=== PATIENT | male | born 1970 | race African-American/Black ===

== ENCOUNTER 2016-08-03 08:59 | Day surgery (SDC) | payer OTHER ==
--- NOTE | 2016-08-02 12:58 | HP ---
DATE OF CLINIC: 07/25/2016 BARNEY PARNELL : 1970 PLANNED PROCEDURE: Left Shoulder Arthroscopic vs. Open Rotator Cuff Repair DATE OF SURGERY: August 03, 2016 SURGEON: Benson Acosta M.D. HISTORY OF PRESENT ILLNESS Barney Parnell is a 46 year old male. * Medication list reviewed with patient allergy list reviewed with patient. * [facility] T[facility] In[facility] 02/29/16 This is a 46-year-old gentleman who we have seen for bilateral shoulder problems currently being seen for his left shoulder which he felt was caused or exacerbated at work. There is a Workman's Comp claim going on. He has been seen physical therapy to work on his range of motion. He states that he still has 6/10 pain. He uses it for everything that he can, but he really still struggles with any overhead motions. He has had an injection which gave him some symptomatic relief but has largely worked at this point and did not result in any significant improvement in his strength. He has a hard time lifting the arm overhead and localizes most of his pain to the posterior lateral shoulder. After discussion and review of treatment options, both operative and non-operative, he has elected to proceed with surgery and presents today preoperatively. PAST MEDICAL AND SURGICAL HISTORY: Past medical and surgical history are unchanged from his previous visit. CURRENT MEDICATION * Cyclobenzaprine HCl 10 MG Tablet 1 once a day 0 days, 0 refills * Fish Oil 500 MG Capsule 1 twice a day 0 days, 0 refills * Ibuprofen 200 MG Tablet as needed 0 days, 0 refills PAST MEDICAL/SURGICAL HISTORY Reported: Shoulder Arthroscopy Right shoulder arthroscopy, rotator cuff repair, subacromial decompression with partial acromioplasty and subpectoral biceps tenodesis 02/24/[address] Benson Acosta at [facility]. Surgical / Procedural: Prior surgery Anal Fissure 1989. Medications: Taking medication for joint pain naproxen BID. SOCIAL HISTORY Behavioral: Caffeine use and non-smoker quit smoking in December 2003. Prior to that he had been a 1 pack/day smoker. Smoking status: Former smoker. Alcohol: Alcohol use - 6 drinks a week. Work: Occupation [email or web address] He lives with his and 3 children. ALLERGIES * Cats FAMILY HISTORY 3 children living REVIEW OF SYSTEMS No recent constitutional symptoms to include fevers and chills. No cardiovascular symptoms to include chest pain or palpitations. No respiratory symptoms to include shortness of breath or recent infections. PHYSICAL FINDINGS * Vitals taken 07/25/2016 09:27 am BP-Sitting R 128/88 mmHg BP Cuff Size Regular Pulse Rate-Sitting 96 bpm Temp-Oral 98.3 F Height 72 in Weight 231 lbs Body Mass Index 31.3 kg/m2 Body Surface Area 2.26 m2 Pain Level 4 Ears, Nose, Throat: * ENT: normal. Lungs: * Clear to auscultation. Cardiovascular: Heart Rate and Rhythm: * Normal. Abdomen: * Normal. Neurological: Motor: * Dominant Hand = Right Hand. Exam of his shoulder shows no significant erythema, ecchymosis or swelling. Range of motion is limited in both abduction and forward flexion to about 160 or so degrees. He externally rotates 45 degrees at the side and almost 90 degrees in the ABER position. He has good strength. He has impingement signs. His biceps signs are negative. IMAGING: He has an MRI that I have not seen any images on, but we have got the report from [facility] confirming a full thickness rotator cuff tear with retraction in the mid-level of the humeral head including the supraspinatus and infraspinatus and some superior fibers and subscapularis as well as an interstitial and infraspinatus tendon with fluid tracking into the infraspinatus muscle. The remainder of the shoulder appears within normal limits. There is no evidence of labral pathology. ASSESSMENT A 46-year-old gentleman with a full thickness left shoulder rotator cuff tear. THERAPY * Patient not eligible for fall risk assessment. PLAN * Complete rotatr-cuff tear/ruptr of left shoulder, not trauma Percocet 5-325 MG TABS, 1or 2 tablets every 4 to 6 hours as needed, 6 days, 0 refills * Rotator cuff repair open vs. arthroscopic -left CARE TEAM Rachel Miles MD Family Practice Guido Gilliam MD Physical Medicine & Rehabilitation SURGICAL CONSENT We have discussed surgical options including left shoulder arthroscopic vs. open rotator cuff repair and non-operative management. The patient was counseled in detail regarding the diagnosis, treatment options available, prognosis of each treatment option and the potential risks and complications. The risks of surgery include, but are not limited to, anesthetic , neurovascular complications, pulmonary embolism, deep vein thrombosis, wound dehiscence, failure of any or all of the discussed procedures, infection of the joint or surrounding soft tissue, need for revision surgery, chronic pain, limitations in activities of daily living, inability to return to work, and loss of normal range of motion or functional use of the extremity. There is the possibility of failure over time that may require additional operative or non-operative treatment. The patient acknowledged that there are a number of perioperative risks not mentioned here and would still like to proceed. The patient is aware of and understands these risks, and wishes to proceed with the proposed surgical procedure and other procedures as indicated at the time of surgery. We will have the patient see their PCP for a preoperative medical risk assessment. The preoperative instructions were reviewed with the patient and all questions were answered. PB/sg
[2016-08-03] MEDS ORDERED: LACTATED RINGERS 1,000 ML ONE ×2 (09:00→14:22)
[2016-08-03] MEDS ORDERED: IV START KIT ONE (09:01)
[2016-08-03] MEDS ORDERED: CEFAZOLIN SODIUM 2 GRAM PREMIX 100 ML IV ONE (09:01)
[2016-08-03] MEDS ORDERED: ROPIVACAINE 0.5% 30 ML VIAL ONE (09:31)
[2016-08-03] MEDS ORDERED: NERVE BLOCK PROCEDURAL TRAY 1 EACH ONE (09:31)
[2016-08-03] MEDS ORDERED: FENTANYL 5 ML ONE (09:34)
[2016-08-03] MEDS ORDERED: DEXAMETHASONE SOD PHOS 4 MG/1 ML VIAL ONE ×2 (09:34→12:15)
[2016-08-03] MEDS ORDERED: MIDAZOLAM HCL 5 MG/5 ML VIAL ONE (09:34)
[2016-08-03] MEDS ORDERED: CEFAZOLIN SODIUM 2 GRAM PREMIX 100 ML IV PRN (10:00)
[2016-08-03] MEDS ORDERED: PROPOFOL 20 ML IV ONE (10:03)
[2016-08-03] MEDS ORDERED: ROCURONIUM BROMIDE 10 MG/ML DOSE IV ONE (10:03)
[2016-08-03] MEDS ORDERED: LIDOCAINE 2% (PRES FREE) 5 ML VIAL ONE (10:03)
[2016-08-03] MEDS ORDERED: BUPIVACAINE 0.25% EPI PF 30 ML VIAL ONE (11:32)
[2016-08-03] MEDS ORDERED: HYDROMORPHONE HCL 2 MG/ML SYRINGE ONE (11:57)
[2016-08-03] MEDS ORDERED: DIPHENHYDRAMINE HCL 50 MG/1 ML VIAL ONE (12:15)
[2016-08-03] MEDS ORDERED: ONDANSETRON 4 MG/2ML 2 ML VIAL ONE (12:15)
[2016-08-03] MEDS ORDERED: GLYCOPYRROLATE 0.2 MG/ML 1ML VIAL ONE (12:51)
[2016-08-03] MEDS ORDERED: NEOSTIGMINE METHYLSULFATE 1 MG/ML DOSE ONE (12:51)
[2016-08-03] MEDS ORDERED: HYDROMORPHONE HCL 1 MG/ML SYRINGE IV PRN ×2 (13:51→14:48)
[2016-08-03] MEDS ORDERED: PROMETHAZINE HCL 25 MG/ML VIAL IM PRN (13:51)
[2016-08-03] MEDS ORDERED: ON-Q PUMP/ROPIVACAINE 0.2% 450 ML in PREMIX BAG 1 EACH NB PRN (13:51)
[2016-08-03] MEDS ORDERED: NALOXONE HCL 0.4 MG/ML VIAL IV PRN (13:51)
[2016-08-03] MEDS ORDERED: FENTANYL 100 MCG/2 ML VIAL IV PRN (13:51)
[2016-08-03] MEDS ORDERED: ONDANSETRON 4 MG/2ML 2 ML VIAL IV PRN ×2 (13:51→14:48)
[2016-08-03] MEDS ORDERED: ATROPINE SULFATE 0.4 MG/1 ML VIAL IV PRN (13:51)
[2016-08-03] MEDS ORDERED: LACTATED RINGERS 1,000 ML IV SCH ×2 (14:00→14:48)
--- NOTE | 2016-08-03 14:10 | PCMBPN ---
Brief Post Op Note: Date of Procedure: 08/03/16 Start Time: 1230 Preoperative Diagnosis: 1. left shoulder rotator cuff tear Postoperative Diagnosis: 1. Same Procedure: left shoulder arthroscopy, subacromical decompression with acromioplasty, and rotator cuff repair Surgeon: Benson Acosta MD Assist: VIRGIL Mckinnon [facility] Findings: large full thickness rotator cuff tear, intact chondral surfaces; large subacromial spur Condition: stable to PACU Complications: none IV Fluids: 2000 mLs of LR Urine Output: 0 mLs Estimated Blood Loss: 100 mLs Tourniquet Time: none Specimens: none Implants: 4 [employer] Healix anchors with Arthrex fiber tape for speedbridge-style 2 -row repair Drains: none Benson Acosta MD
[2016-08-03] MEDS ORDERED: DIPHENHYDRAMINE HCL 50 MG/1 ML VIAL IV PRN (14:48)
[2016-08-03] MEDS ORDERED: OXYCODONE/ACETAMINOPHEN 5/325 MG TABLET PO PRN (14:48)
[2016-08-03] MEDS ORDERED: ACETAMINOPHEN 325 MG TABLET PO PRN (14:48)
--- NOTE | 2016-08-03 15:04 | RAD ---
SHOULDER-LEFT 1 VIEW HISTORY: Postop left shoulder rotator cuff repair. COMPARISONS: 02/29/2016. FINDINGS: A single AP view of the left shoulder was performed demonstrating intact osseous structures. The humeral head projects over the central aspect of the bony glenoid. No radiopaque foreign body is visualized. The visualized lung parenchyma is grossly unremarkable. IMPRESSION: 1. A negative single view of the left shoulder.
[2016-08-03] MEDS ORDERED: ON-Q PUMP/ROPIVACAINE 0.2% 450 ML ONE (15:05)
--- NOTE | 2016-08-04 09:16 | OP ---
aBrney MOORE : 1970 [id number] DATE OF SERVICE: August 03, 2016 PREOPERATIVE DIAGNOSIS: Left shoulder rotator cuff tear. POSTOPERATIVE DIAGNOSIS: Left shoulder rotator cuff tear. PROCEDURE PERFORMED: LEFT SHOULDER ARTHROSCOPY WITH SUBACROMIAL DECOMPRESSION AND ACROMIOPLASTY AND A ROTATOR CUFF REPAIR. SURGEON: Benson Acosta M.D. CLINICAL RESOURCE DIRECTOR: Pepito Mckinnon ANESTHESIA: Magdaleno NgNGriselda SPECIMENS: No material was sent to the laboratory. ESTIMATED BLOOD LOSS: 100 mL. INTRAVENOUS FLUIDS: 2,000 mL of crystalloid. URINE OUTPUT: None. TOURNIQUET TIME: None. IMPLANTS: Four [employer] Healix anchors, Ar[employer]x FiberTape for a SpeedBridge style two row repair. DRAINS: No drains. INDICATIONS: This is a 46-year-old male with history, physical exam and radiographic findings, which demonstrate left shoulder full thickness rotator cuff tear. He has failed a course of nonoperative measures and has symptoms which limits his activities. The risks, benefits and alternatives of a repair were discussed with the patient elected to proceed. For additional details see his preoperative H&P. DESCRIPTION OF PROCEDURE: The patient was identified in the pre-operative holding area where he was marked with indelible marker by the operating surgeon. He had an interscalene block with a catheter placed by the anesthesia providers under ultrasound guidance. He was taken to the operating room where he was placed in the supine position on the operating room table. General anesthesia was induced. He was repositioned an upright beach chair seated reduction with all bony prominences padded. He received perioperative antibiotics and was prepped and draped in the usual sterile fashion for surgery. A final operative time out was performed and confirmed by all members of the operative team. A posterior portal was created and the 30 degree viewing arthroscope was inserted into the glenohumeral joint. Intra-articular position was confirmed. Optics were directed anteriorly and then anterior portal was localized with a spinal needle and created in a standard fashion. A 7 mm cannula was inserted to offer instrumentation of the shoulder joint. Diagnostic arthroscopy demonstrated intact labral structures, intact chondral surfaces of the humeral head and the glenoid, intact biceps tendon without evidence of significant injection. There was some synovitis within the shoulder joint. The rotator cuff was torn beginning a few millimeters posterior to the rotator interval and extending back through the remainder of the supraspinatus and a portion of infraspinatus. The cuff tear was retracted approximately 1.5 cm from its [place] position. This did not appear to an acute tear but rather something that had been somewhat degenerative and had been around for a little while. The camera was redirected in the subacromial space and a lateral portal was created. A subacromial bursectomy was created. A large subacromial spur was identified and this was coplaned down with a barrel shaped bur. At this point we switched the anterior cannula into the subacromial space. Two medial row Healix anchors were placed after being threaded with FiberTape. The tails of these anchors were passed up through the medial portion of the cuff and then switched in a SpeedBridge style lacing and anchored into a lateral row with two additional Healix anchors. This brought the cuff down to its [place] footprint and apposed it well to the bone. At this point the arm was taken through a range of motion and there was no gapping noted in the cuff. The camera and the instruments were removed from the shoulder. The portal sites were closed #4-0 Nylon. A sterile dressing of Xeroform, fluffs, ABDs and Medipore tape was applied. The drapes were removed. The patient was awakened from his anesthesia and extubated in the operating room. He was transferred to a stretcher and taken postoperatively to the postanesthesia care unit in stable condition. There were no observed intraoperative complications. Job [id number] Cc: [facility]
== END 2016-08-03 17:20 | disposition home or self-care (01) ==
LOC: SDC 08:59
PROVIDERS: ATTEND Orthopaedic Surgery
PROC: 0LQ24ZZ Repair Left Shoulder Tendon, Percutaneous Endoscopic Approach (ICD-10-PCS; principal; 2016-08-03)
PROC: 0RNK4ZZ Release Left Shoulder Joint, Percutaneous Endoscopic Approach (ICD-10-PCS; 2016-08-03)
DX: M75.122 Complete rotator cuff tear or rupture of left shoulder, not specified as traumatic (principal); M65.812 Other synovitis and tenosynovitis, left shoulder; Z79.899 Other long term (current) drug therapy; Z87.891 Personal history of nicotine dependence
CPT/HCPCS: 29827; 29826; 73020; J1200; J1170; J3010; J1100 ×2; J2795 ×3; J2250; J2405; J7120 ×2; A4306; J0690